=== PATIENT | female | born 1930 | race African-American/Black ===

== ENCOUNTER 2018-11-01 18:14 | Emergency (ER) | payer MEDICARE ==
[2018-11-01] MEDS ORDERED: Lidocaine 1% w/Epinephrine 1:100K 20 ML VIAL ONE (18:36)
--- NOTE | 2018-11-01 18:54 | CT ---
CT head noncontrast HISTORY: Head injury. COMPARISON: 08/14/2012. FINDINGS: There is no evidence of acute intracranial hemorrhage or infarct. The ventricles appear nor mal in size, shape and position. There is no mass effect or shift of midline structures. Visualized paranasal sinuses remain well aerated. IMPRESSION: No acute intracranial abnormalities are demonstrated.
== END 2018-11-01 19:19 | disposition home or self-care (01) ==
LOC: ERS 18:14
DX: S01.81XA Laceration without foreign body of other part of head, initial encounter (principal); I10 Essential (primary) hypertension; E11.9 Type 2 diabetes mellitus without complications; E78.5 Hyperlipidemia, unspecified; K21.9 Gastro-esophageal reflux disease without esophagitis; Z79.899 Other long term (current) drug therapy; Z23 Encounter for immunization; W18.30XA Fall on same level, unspecified, initial encounter
CPT/HCPCS: 12013; 70450; 90471; J2001

== ENCOUNTER 2018-11-06 09:23 | Emergency (ER) | payer MEDICARE, OTHER | END 2018-11-06 09:49 | disposition home or self-care (01) | LOC: ERS 09:23 | DX: S01.81XD Laceration without foreign body of other part of head, subsequent encounter (principal); E11.9 Type 2 diabetes mellitus without complications; E78.5 Hyperlipidemia, unspecified; I10 Essential (primary) hypertension; Z79.899 Other long term (current) drug therapy ==

== ENCOUNTER 2020-06-12 20:51 | Inpatient (IN) | payer MEDICARE ==
[2020-06-12 21:56] LABS: #Eosinphils 0.1 thou/uL (0.0-0.7); #Lymphocytes 2.3 thou/uL (1.20-3.40); #Monocytes 0.3 thou/uL (0.11-0.59); #Neutrophils 3.6 thou/uL (1.40-6.50); %Basophils 0.7 % (0.0-1.0); %Eosinophils 1.3 % (0.0-10.0); %Lymphocytes 36.7 % (21.0-51.0); %Neutrophils 56.4 % (42.0-75.0); ALT (SGPT) 84 U/L (8-55); AST (SGOT) 168 U/L (5-34); Albumin 3.9 g/dL (3.4-4.8); Alkaline Phosphatase 211 U/L (40-110); Anion Gap 17 mmol/L (10-20); BUN (Urea Nitrogen) 26 mg/dL (9.8-20.1); Bilirubin, Total 0.5 mg/dL (0.2-1.2); Calc. Creatinine Clearance 0 mL/min (70-130); Calcium 8.8 mg/dL (7.8-10.44); Carbon Dioxide 22 mmol/L (23-31); Chloride 105 mmol/L (98-107); Globulin 3.1 g/dL (2.4-3.5); Glucose 167 mg/dL (83-110); Hemoglobin 11.5 g/dL (12.0-16.0); Mean Corpuscular HGB CONC 32.9 g/dL (32.0-36.0); Mean Corpuscular Volume 94.2 fL (78.0-98.0); Mean Platelet Volume 6.6 fL (7.4-10.4); Platelet Count 244 thou/uL (130-400); Potassium 4.1 mmol/L (3.5-5.1); RBC Distribution Width 12.4 % (11.5-14.5); Red Blood Cell (RBC) Count 3.72 mill/uL (4.20-5.40); Sodium 140 mmol/L (136-145); White Blood Cell (WBC) Count 6.3 thou/uL (4.8-10.8)
[2020-06-12 22:10] LABS: Lipase 3651 U/L (8-78)
[2020-06-12] MEDS ORDERED: Ondansetron PF 4 MG/2 ML Vial ONE (22:30)
[2020-06-12] MEDS ORDERED: Morphine 4 MG/ML VIAL ONE (22:30)
[2020-06-13] MEDS ORDERED: Ondansetron PF 4 MG/2 ML Vial IVP PRN (01:20)
[2020-06-13] MEDS ORDERED: hydrALAZINE 20 MG/ML VIAL SLOW IVP PRN (01:24)
[2020-06-13] MEDS ORDERED: HumaLOG 300 UNITS/3 ML VIAL SC PRN (01:25)
[2020-06-13] MEDS ORDERED: Dextrose 5% in Water 1,000 ML IV PRN (01:25)
[2020-06-13 02:28] VITALS: BMI 31.8
[2020-06-13] MEDS ORDERED: Metoclopramide HCl 10 MG/2 ML VIAL IVP SCH (02:30)
[2020-06-13] MEDS: Morphine 4 MG/ML VIAL SLOW IVP PRN (02:52)
[2020-06-13] MEDS: Lactated Ringer's 1,000 ML IV SCH ×4 (02:52→18:41)
[2020-06-13 04:16] LABS: #Lymphocytes 0.4 thou/uL (1.20-3.40); #Monocytes 0.4 thou/uL (0.11-0.59); %Basophils 0.4 % (0.0-1.0); %Eosinophils 0.1 % (0.0-10.0); %Lymphocytes 4.5 % (21.0-51.0); %Monocytes 4.6 % (0.0-10.0); %Neutrophils 90.5 % (42.0-75.0); Hemoglobin 10.9 g/dL (12.0-16.0); Mean Corpuscular HGB CONC 32.7 g/dL (32.0-36.0); Mean Corpuscular Hemoglobin 30.8 pg (27.0-31.0); Mean Corpuscular Volume 94.4 fL (78.0-98.0); Mean Platelet Volume 6.5 fL (7.4-10.4); Platelet Count 231 thou/uL (130-400); RBC Distribution Width 12.2 % (11.5-14.5); Red Blood Cell (RBC) Count 3.53 mill/uL (4.20-5.40); White Blood Cell (WBC) Count 8.8 thou/uL (4.8-10.8)
[2020-06-13 04:34] LABS: Cardiac Risk 3.7 (Less than 4.5)
[2020-06-13 04:39] LABS: ALT (SGPT) 716 U/L (8-55); AST (SGOT) 1381 U/L (5-34); Albumin 3.6 g/dL (3.4-4.8); Alkaline Phosphatase 249 U/L (40-110); Anion Gap 16 mmol/L (10-20); BUN (Urea Nitrogen) 20 mg/dL (9.8-20.1); Calc. Creatinine Clearance 37 mL/min (70-130); Calcium 8.6 mg/dL (7.8-10.44); Carbon Dioxide 20 mmol/L (23-31); Chloride 108 mmol/L (98-107); Globulin 2.8 g/dL (2.4-3.5); Glucose 165 mg/dL (83-110); Potassium 4.4 mmol/L (3.5-5.1); Protein, Total 6.4 g/dL (5.8-8.1); Sodium 140 mmol/L (136-145)
[2020-06-13 09:32] LABS: SARS-CoV-2 PCR by NAA Not Detected (NotDetected)
[2020-06-13] MEDS: cefTRIAXone\\ROCEPHIN 1 GM in Sodium Chloride 0.9% 100 ML IVPB SCH (13:30)
[2020-06-13] MEDS: Dextrose 50% Abboject 50 ML SYRINGE SLOW IVP PRN ×2 (14:27→17:30)
[2020-06-13 17:44] LABS: #Eosinphils 0.1 thou/uL (0.0-0.7); #Lymphocytes 1.2 thou/uL (1.20-3.40); #Monocytes 0.7 thou/uL (0.11-0.59); #Neutrophils 8.2 thou/uL (1.40-6.50); %Basophils 0.2 % (0.0-1.0); %Eosinophils 0.5 % (0.0-10.0); %Lymphocytes 12.2 % (21.0-51.0); %Monocytes 6.6 % (0.0-10.0); %Neutrophils 80.5 % (42.0-75.0); Hemoglobin 10.3 g/dL (12.0-16.0); Mean Corpuscular HGB CONC 33.5 g/dL (32.0-36.0); Mean Corpuscular Hemoglobin 31.7 pg (27.0-31.0); Mean Corpuscular Volume 94.5 fL (78.0-98.0); Mean Platelet Volume 6.4 fL (7.4-10.4); Platelet Count 221 thou/uL (130-400); RBC Distribution Width 12.3 % (11.5-14.5); Red Blood Cell (RBC) Count 3.26 mill/uL (4.20-5.40); White Blood Cell (WBC) Count 10.2 thou/uL (4.8-10.8)
[2020-06-13 18:07] LABS: ALT (SGPT) 607 U/L (8-55); AST (SGOT) 792 U/L (5-34); Albumin 3.2 g/dL (3.4-4.8); Alkaline Phosphatase 218 U/L (40-110); Anion Gap 11 mmol/L (10-20); BUN (Urea Nitrogen) 16 mg/dL (9.8-20.1); Bilirubin, Total 0.6 mg/dL (0.2-1.2); Calc. Creatinine Clearance 44 mL/min (70-130); Calcium 8.2 mg/dL (7.8-10.44); Carbon Dioxide 23 mmol/L (23-31); Chloride 111 mmol/L (98-107); Globulin 2.7 g/dL (2.4-3.5); Glucose 65 mg/dL (83-110); Potassium 4.1 mmol/L (3.5-5.1); Protein, Total 5.9 g/dL (5.8-8.1); Sodium 141 mmol/L (136-145)
[2020-06-13 18:20] LABS: Lipase 3577 U/L (8-78)
[2020-06-13] MEDS: Dextrose 5% in Water 1,000 ML IV SCH (20:37)
[2020-06-14] MEDS: Morphine 4 MG/ML VIAL SLOW IVP PRN (00:55)
[2020-06-14] MEDS: Dextrose 5% in Water 1,000 ML IV SCH ×4 (00:58→18:43)
[2020-06-14 05:53] LABS: #Eosinphils 0.2 thou/uL (0.0-0.7); #Lymphocytes 1.2 thou/uL (1.20-3.40); #Monocytes 0.6 thou/uL (0.11-0.59); #Neutrophils 4.6 thou/uL (1.40-6.50); %Basophils 0.1 % (0.0-1.0); %Eosinophils 2.6 % (0.0-10.0); %Lymphocytes 17.8 % (21.0-51.0); %Monocytes 8.4 % (0.0-10.0); %Neutrophils 71.1 % (42.0-75.0); Hemoglobin 9.9 g/dL (12.0-16.0); Mean Corpuscular HGB CONC 33.1 g/dL (32.0-36.0); Mean Corpuscular Hemoglobin 31.3 pg (27.0-31.0); Mean Corpuscular Volume 94.6 fL (78.0-98.0); Mean Platelet Volume 6.6 fL (7.4-10.4); Platelet Count 202 thou/uL (130-400); RBC Distribution Width 12.4 % (11.5-14.5); Red Blood Cell (RBC) Count 3.16 mill/uL (4.20-5.40); White Blood Cell (WBC) Count 6.5 thou/uL (4.8-10.8)
[2020-06-14 06:18] LABS: ALT (SGPT) 444 U/L (8-55); AST (SGOT) 428 U/L (5-34); Albumin 2.9 g/dL (3.4-4.8); Alkaline Phosphatase 182 U/L (40-110); Anion Gap 11 mmol/L (10-20); BUN (Urea Nitrogen) 10 mg/dL (9.8-20.1); Bilirubin, Total 0.5 mg/dL (0.2-1.2); Calc. Creatinine Clearance 46 mL/min (70-130); Carbon Dioxide 24 mmol/L (23-31); Chloride 106 mmol/L (98-107); Globulin 2.4 g/dL (2.4-3.5); Glucose 118 mg/dL (83-110); Potassium 3.9 mmol/L (3.5-5.1); Protein, Total 5.3 g/dL (5.8-8.1); Sodium 137 mmol/L (136-145)
[2020-06-14 06:31] LABS: Lipase 2296 U/L (8-78)
[2020-06-14] MEDS: cefTRIAXone\\ROCEPHIN 1 GM in Sodium Chloride 0.9% 100 ML IVPB SCH (12:36)
[2020-06-15] MEDS: Dextrose 5% in Water 1,000 ML IV SCH ×2 (05:13→17:39)
[2020-06-15 06:27] LABS: #Eosinphils 0.2 thou/uL (0.0-0.7); #Lymphocytes 1.2 thou/uL (1.20-3.40); #Monocytes 0.4 thou/uL (0.11-0.59); #Neutrophils 2.6 thou/uL (1.40-6.50); %Basophils 0.7 % (0.0-1.0); %Eosinophils 4.4 % (0.0-10.0); %Lymphocytes 26.9 % (21.0-51.0); %Monocytes 8.8 % (0.0-10.0); %Neutrophils 59.2 % (42.0-75.0); Hemoglobin 10.2 g/dL (12.0-16.0); Mean Corpuscular HGB CONC 31.7 g/dL (32.0-36.0); Mean Corpuscular Hemoglobin 29.8 pg (27.0-31.0); Mean Platelet Volume 6.7 fL (7.4-10.4); Platelet Count 222 thou/uL (130-400); RBC Distribution Width 12.1 % (11.5-14.5); Red Blood Cell (RBC) Count 3.44 mill/uL (4.20-5.40); White Blood Cell (WBC) Count 4.3 thou/uL (4.8-10.8)
[2020-06-15 06:54] LABS: ALT (SGPT) 303 U/L (8-55); AST (SGOT) 175 U/L (5-34); Alkaline Phosphatase 173 U/L (40-110); Anion Gap 12 mmol/L (10-20); BUN (Urea Nitrogen) 6 mg/dL (9.8-20.1); Bilirubin, Total 0.5 mg/dL (0.2-1.2); Calc. Creatinine Clearance 57 mL/min (70-130); Calcium 8.4 mg/dL (7.8-10.44); Carbon Dioxide 23 mmol/L (23-31); Chloride 107 mmol/L (98-107); Globulin 2.7 g/dL (2.4-3.5); Glucose 124 mg/dL (83-110); Lipase 371 U/L (8-78); Potassium 3.9 mmol/L (3.5-5.1); Protein, Total 5.7 g/dL (5.8-8.1); Sodium 138 mmol/L (136-145)
[2020-06-15 07:10] LABS: HBCM Index 0.05 S/CO (0-0.79); Hep A IgM AB Non-Reactive (NonReactive); Hep A IgM S/CO 0.13 S/CO (0-0.79); Hep B Surf Ag Non-Reactive S/CO (NonReactive); Hep C IgG Ab Non-Reactive (NonReactive); Hepatitis B Core IgM Abs Non-Reactive (NonReactive)
[2020-06-15] MEDS: cefTRIAXone\\ROCEPHIN 1 GM in Sodium Chloride 0.9% 100 ML IVPB SCH (13:38)
[2020-06-15] MEDS ORDERED: Enoxaparin Sodium 40 MG/0.4 ML SYRINGE SC SCH (21:00)
[2020-06-16] MEDS: Dextrose 5% in Water 1,000 ML IV SCH (05:22)
[2020-06-16 10:19] LABS: ALT (SGPT) 225 U/L (8-55); AST (SGOT) 77 U/L (5-34); Albumin 3.4 g/dL (3.4-4.8); Alkaline Phosphatase 173 U/L (40-110); Bilirubin, Direct 0.2 mg/dL (0.1-0.3); Bilirubin, Total 0.4 mg/dL (0.2-1.2); Lipase 252 U/L (8-78); Protein, Total 6.3 g/dL (5.8-8.1)
[2020-06-16 11:24] VITALS: BP 116/60; TEMP 98.1
[2020-06-16] MEDS: cefTRIAXone\\ROCEPHIN 1 GM in Sodium Chloride 0.9% 100 ML IVPB SCH (12:01)
[2020-06-18 16:16] LABS: ANA Symphony (Qualitative) Negative (Negative); ANA Symphony (Quantitative) 0.2 Ratio (< 0.7 Negative); EliA Vaculitis New Method **** NEW METHOD ****; Mitochondrial Ab 1.5 U/mL (<4 Negative); dsDNA IgG Antibody Less than 0.5 IU/mL (<10 Negative)
== END 2020-06-16 14:13 | disposition home or self-care (01) | DRG 439 ==
LOC: ERS 20:51 → T4-A 23:28
PROVIDERS: ADMIT Internal Medicine; ATTEND Internal Medicine
DX: K85.10 Biliary acute pancreatitis without necrosis or infection (principal); K81.0 Acute cholecystitis; N17.9 Acute kidney failure, unspecified; K83.8 Other specified diseases of biliary tract; I10 Essential (primary) hypertension; Z20.822 Contact with and (suspected) exposure to COVID-19; K21.9 Gastro-esophageal reflux disease without esophagitis; E11.9 Type 2 diabetes mellitus without complications; Z96.652 Presence of left artificial knee joint; E78.5 Hyperlipidemia, unspecified; R94.5 Abnormal results of liver function studies; Z90.710 Acquired absence of both cervix and uterus; Z88.6 Allergy status to analgesic agent; Z88.8 Allergy status to other drugs, medicaments and biological substances; Z82.49 Family history of ischemic heart disease and other diseases of the circulatory system; Z79.899 Other long term (current) drug therapy
CPT/HCPCS: 36415; 36416; 71045; 74181; 76705; 80053; 80061; 80074; 80076; 82150; 82390; 82465; 83516; 83690; 84484; 85025; 85379; 86038; 86225; 87635; 93005; 96374; 96375; J0696; J1650; J2270; J2405; J2765; J3490; U0003; U0005